=== PATIENT | male | born 1985 | race African-American/Black ===

== ENCOUNTER 2018-12-22 22:06 | Emergency (ER) | payer MEDICAID ==
[~2018-12-22] VITALS: Ht 190.5 cm; Wt 113.4 kg
[2018-12-22 22:06] VITALS: BP 180/107
[2018-12-22] MEDS ORDERED: HALOPERIDOL 2 MG TABLET. PO PRN (23:00)
[2018-12-22 23:11] LABS: BILIRUBIN,URINE NEGATIVE (NEG); CLARITY,URINE CLEAR; COLOR,URINE YELLOW; NITRITE,URINE NEGATIVE (NEG); PH,URINE 5.5; PROTEIN,URINE NEGATIVE (NEG-TRACE); UROBILINOGEN,URINE 0.2 mg/dL (0.2 mg/dL)
[2018-12-22 23:15] LABS: BACTERIA,URINE 0 /HPF (0-FEW); RBC,URINE 0 /HPF (0-2); SQUAMOUS EPITHELIAL CELL,UR FEW /LPF
[2018-12-22] MEDS ORDERED: OLANZapine 5 MG TABLET PO ONE (23:15)
[2018-12-22] MEDS ORDERED: LITHIUM CARBONATE 150 MG CAPSULE. PO SCH (23:15)
[2018-12-22] MEDS ORDERED: LITHIUM CARBONATE 150 MG CAPSULE. PO ONE (23:15)
[2018-12-22] MEDS ORDERED: LORazepam 0.5 MG TABLET PO ONE (23:15)
[2018-12-22 23:17] LABS: BARBITURATES NEG (NEG); BENZODIAZEPINES NEG (NEG); CANNABINOIDS NEG (NEG); COCAINE NEG (NEG); METHADONE NEG (NEG); OPIATES NEG (NEG); PHENCYCLIDINE NEG (NEG)
[2018-12-22 23:18] LABS: AMPHETAMINE/METHAMPHETAMINE NEG (NEG)
[2018-12-22] MEDS ORDERED: traZODone 50 MG TABLET. PO SCH (23:45)
--- NOTE | 2018-12-22 23:55 | PHYS DOC ---
Past Medical History Past Medical History: Constipation, Schizophrenia Additional Past Medical Histor: insomnia,unspecified psychosis,jaw pain,back pain Past Surgical History: No Surgical History Alcohol Use: None Drug Use: None Adult General Chief Complaint Chief Complaint: PSYCH EVALUATION HPI HPI Patient is a 33 year old male who presents to the ED with a chief complaint mental health evaluation. Patient was sent from the [facility] with chief complaint of noncompliance. Staff states that patient does not want to take any of his medication and he does not live there anymore. Patient's guardian is his mother. Patient denies suicidal ideation, homicidal ideation, hallucinations. Review of Systems Review of Systems Constitutional: Denies fever or chills [] Eyes: Denies change in visual acuity, redness, or eye pain [] HENT: Denies nasal congestion or sore throat [] Respiratory: Denies cough or shortness of breath [] Cardiovascular: Denies chest pain GI: Denies abdominal pain, nausea, vomiting, bloody stools or diarrhea [] : Denies dysuria or hematuria [] Musculoskeletal: Denies back pain or joint pain [] Integument: Denies rash or skin lesions [] Neurologic: Denies headache, focal weakness or sensory changes [] All other systems were reviewed and found to be within normal limits, except as documented in this note. Current Medications Current Medications Current Medications Medications (Trade) Dose Ordered Sig/Batsheva Start Time Stop Time Status Last Admin Dose Admin Chlorpromazine HCl (Thorazine) 10 mg PRN QHS PRN 12/22/18 23:00 12/22/18 23:21 10 MG Haloperidol (Haldol) 4 mg 1X PRN 12/22/18 23:00 12/22/18 23:21 4 MG Kell Carbonate (Kell Carbonate) 75 mg 1X ONCE 12/22/18 23:15 12/22/18 23:16 DC 12/22/18 23:20 75 MG Lorazepam (Ativan) 0.5 mg 1X ONCE 12/22/18 23:15 12/22/18 23:16 DC 12/22/18 23:21 0.5 MG Olanzapine (ZyPREXA) 15 mg 1X ONCE 12/22/18 23:15 12/22/18 23:16 DC 12/22/18 23:21 15 MG Trazodone HCl (Desyrel) 150 mg QHS 12/22/18 23:45 12/22/18 23:43 150 MG Allergies Allergies Allergies Coded Allergies Type Severity Reaction Last Updated Verified No Known Drug Allergies 12/22/18 No Physical Exam Physical Exam Constitutional: Well developed, well nourished, no acute distress, non-toxic appearance. [] HENT: Normocephalic, atraumatic Eyes: PERRLA, EOMI, conjunctiva normal, no discharge. [] Neck: Normal range of motion, no tenderness, supple Cardiovascular:Heart rate regular rhythm, no murmur [] Lungs & Thorax: Bilateral breath sounds clear to auscultation [] Abdomen: Bowel sounds normal, soft, no tenderness Skin: Warm, dry, no erythema, no rash. [] Back: No tenderness, no CVA tenderness. [] Extremities: No tenderness, no cyanosis, no clubbing, ROM intact Neurologic: Alert and oriented X 3 Psych: Patient denies suicidal ideation, homicidal ideation, hallucinations Current Patient Data Vital Signs Vital Signs Date Time Temp Pulse Resp B/P (MAP) Pulse Ox O2 Delivery O2 Flow Rate FiO2 12/22/18 22:06 98.3 91 20 180/107 (131) 98 Room Air 98.3 Lab Values Laboratory Tests Test 12/22/18 23:00 Urine Collection Type Unknown Urine Color Yellow Urine Clarity Clear Urine pH 5.5 Urine Specific Albin 1.015 Urine Protein Negative mg/dL (NEG-TRACE) Urine Glucose (UA) Negative mg/dL (NEG) Urine Ketones (Stick) Trace mg/dL (NEG) Urine Blood Negative (NEG) Urine Nitrite Negative (NEG) Urine Bilirubin Negative (NEG) Urine Urobilinogen Dipstick 0.2 mg/dL (0.2 mg/dL) Urine Leukocyte Esterase Negative (NEG) Urine RBC 0 /HPF (0-2) Urine WBC 1-4 /HPF (0-4) Urine Squamous Epithelial Cells Few /LPF Urine Bacteria 0 /HPF (0-FEW) Urine Mucus Mod /LPF Urine Opiates Screen Neg (NEG) Urine Methadone Screen Neg (NEG) Urine Barbiturates Neg (NEG) Urine Phencyclidine Screen Neg (NEG) Urine Amphetamine/Methamphetamine Neg (NEG) Urine Benzodiazepines Screen Neg (NEG) Urine Cocaine Screen Neg (NEG) Urine Cannabinoids Screen Neg (NEG) Urine Ethyl Alcohol Neg (NEG) EKG EKG [] Radiology/Procedures Radiology/Procedures [] Course & Med Decision Making Course & Med Decision Making Pertinent Labs studies reviewed. (See chart for details) Patient was cooperative in the ER. Was not combative and noncompliant. Patient to call his medications. We did a UDS which is negative for drugs. Patient is agreeable to going back to her facility tonight and then try to see if he can rule out tomorrow. He states that he'll talk to his mother who is his guardian. Patient states that he does not understand that facility and he wants to move to another place. Discussed results and plan of care with patient. Patient is instructed to follow up with PCP in one to 2 days. Appropriate discharge instructions given to patient to return to the ED or to seek immediate medical evaluation. Dragon Disclaimer Dragon Disclaimer This electronic medical record was generated, in whole or in part, using a voice recognition dictation system. Departure Departure Impression: Primary Impression: Encounter for screening examination for mental health and behavioral disorders, unspecified Disposition: 01 HOME, SELF-CARE Condition: STABLE Referrals: ROXY FORTUNE MD (PCP) Additional Instructions: Appropriate discharge instructions given to patient to return to the ED or to seek immediate medical evaluation. Patient follow-up with PCP in one to 2 days. Patient instructed to return to ED if symptoms worsen or if any concerns CHLOE HIDALGO DO Dec 22, 2018 23:55
== END 2018-12-23 00:30 | disposition home or self-care (01) ==
LOC: ER 22:06
DX: Z13.30 Encounter for screening examination for mental health and behavioral disorders, unspecified (principal); F20.9 Schizophrenia, unspecified
CPT/HCPCS: 80307; 81001; 99284; Q0161